=== PATIENT | female | born 1965 | race Caucasian/White ===

== ENCOUNTER 2020-12-02 07:25 | Inpatient (IN) | payer MEDICARE ==
[2020-12-02 08:20] LABS: #Lymphocytes 0.6 thou/uL (1.20-3.40); #Monocytes 0.3 thou/uL (0.11-0.59); #Neutrophils 1.7 thou/uL (1.40-6.50); %Basophils 0.1 % (0.0-1.0); %Eosinophils 0.1 % (0.0-10.0); %Lymphocytes 24.1 % (21.0-51.0); %Monocytes 10.8 % (0.0-10.0); %Neutrophils 64.8 % (42.0-75.0); Mean Corpuscular HGB CONC 34.4 g/dL (32.0-36.0); Mean Corpuscular Hemoglobin 31.8 pg (27.0-31.0); Mean Corpuscular Volume 92.6 fL (78.0-98.0); Mean Platelet Volume 5.9 fL (7.4-10.4); Platelet Count 304 thou/uL (130-400); Red Blood Cell (RBC) Count 3.46 mill/uL (4.20-5.40); White Blood Cell (WBC) Count 2.5 thou/uL (4.8-10.8)
[2020-12-02] MEDS ORDERED: Cefepime 2 GM VIAL ONE (08:29)
[2020-12-02 08:33] LABS: INR-International Normal Ratio 1.2; PTT 28.5 sec (22.9-36.1); Prothrombin Time 15.5 sec (12.0-14.7)
[2020-12-02 08:43] LABS: ALT (SGPT) 32 U/L (8-55); AST (SGOT) 20 U/L (5-34); Albumin 3.9 g/dL (3.5-5.0); Alkaline Phosphatase 124 U/L (40-110); Anion Gap 17 mmol/L (10-20); BUN (Urea Nitrogen) 11 mg/dL (9.8-20.1); Bilirubin, Total 0.5 mg/dL (0.2-1.2); Calc. Creatinine Clearance 0 mL/min (70-130); Carbon Dioxide 19 mmol/L (22-29); Chloride 106 mmol/L (98-107); Globulin 3.1 g/dL (2.4-3.5); Glucose 148 mg/dL (70-105); Potassium 3.8 mmol/L (3.5-5.1); Sodium 138 mmol/L (136-145)
[2020-12-02 09:18] LABS: Bilirubin Negative (Negative); Blood, Urine 1+ (Negative); Clarity Clear (Clear); Glucose, Urine (Dipstick) Normal (Negative); Ketone, Urine 10 mg/dL (Negative); Leukocyte Negative Leu/uL (Negative); Mucous/LPF Rare LPF (<2+); Nitrite Negative (Negative); Protein, Urine (Dipstick) Negative (Neg-Trace); RBC/HPF 0-3 HPF (0-3); Squamous Epithelial 0-3 HPF (0-3); Urobilinogen Normal mg/dL (Less than 2); WBC/HPF 0-3 HPF (0-3)
[2020-12-02 09:19] LABS: Bacteria/HPF Rare-Few HPF (None Seen)
[2020-12-02] MEDS ORDERED: Vancomycin HCl 1.5 GM in Sodium Chloride 0.9% 250 ML 300 ML IVPB SCH (10:00)
[2020-12-02 11:10] LABS: SARS-CoV-2 NAA Rapid Test Not Detected (NotDetected)
[2020-12-02] MEDS ORDERED: Acetaminophen 325 MG TAB PO PRN (11:26)
[2020-12-02] MEDS ORDERED: Ondansetron PF 4 MG/2 ML Vial IVP PRN (11:40)
[2020-12-02] MEDS ORDERED: Metoclopramide HCl 10 MG/2 ML VIAL IVP PRN (11:40)
[2020-12-02 12:16] LABS: Lactic Acid 1.3 mmol/L (0.5-2.2)
[2020-12-02 12:19] LABS: Magnesium 1.7 mg/dL (1.6-2.6); Phosphorus 3.2 mg/dL (2.3-4.7)
[2020-12-02] MEDS ORDERED: Loperamide HCl 2 MG CAP PO PRN (14:36)
[2020-12-02 14:39] VITALS: BMI 27.4
[2020-12-02] MEDS: Cefepime 2 GM in Sodium Chloride 0.9% 100 ML IVPB SCH (15:23)
[2020-12-02] MEDS: Sodium Chloride 0.9% 1,000 ML IV SCH ×3 (15:23→21:05)
[2020-12-02] MEDS: Apixaban 5 MG TAB PO SCH (20:11)
[2020-12-02] MEDS ORDERED: Vancomycin 1 GM in Premix Bag 1 BAG IVPB SCH (22:00)
[2020-12-03] MEDS: Cefepime 2 GM in Sodium Chloride 0.9% 100 ML IVPB SCH ×3 (01:08→17:12)
[2020-12-03] MEDS: Sodium Chloride 0.9% 1,000 ML IV SCH (05:58)
[2020-12-03 06:10] LABS: Anion Gap 7 mmol/L (10-20); BUN (Urea Nitrogen) 8 mg/dL (9.8-20.1); Calc. Creatinine Clearance 102 mL/min (70-130); Carbon Dioxide 25 mmol/L (22-29); Chloride 111 mmol/L (98-107); Glucose 92 mg/dL (70-105); Potassium 3.4 mmol/L (3.5-5.1); Sodium 140 mmol/L (136-145)
[2020-12-03 06:15] LABS: #Lymphocytes 1.3 thou/uL (1.20-3.40); #Monocytes 0.4 thou/uL (0.11-0.59); #Neutrophils 0.9 thou/uL (1.40-6.50); %Basophils 0.3 % (0.0-1.0); %Eosinophils 1.1 % (0.0-10.0); %Monocytes 14.3 % (0.0-10.0); %Neutrophils 35.3 % (42.0-75.0); Hemoglobin 8.1 g/dL (12.0-16.0); Mean Corpuscular HGB CONC 35.3 g/dL (32.0-36.0); Mean Corpuscular Hemoglobin 33.5 pg (27.0-31.0); Mean Corpuscular Volume 94.9 fL (78.0-98.0); Mean Platelet Volume 5.7 fL (7.4-10.4); Platelet Count 256 thou/uL (130-400); RBC Distribution Width 16.3 % (11.5-14.5); Red Blood Cell (RBC) Count 2.43 mill/uL (4.20-5.40); White Blood Cell (WBC) Count 2.7 thou/uL (4.8-10.8)
[2020-12-03 06:16] LABS: Band 15 % (5-11); Eosinophils 3 % (0-10); Lymphocytes 55 % (21-51); MDiff Complete? YES; Monocytes 10 % (0-10); Neutrophil 17 % (42-75); Nucleated RBC 1 % (0); Platelet Morphology Comment Appears Adequate
[2020-12-03] MEDS: Escitalopram Oxalate 10 mg Tablet PO SCH (09:28)
[2020-12-03] MEDS: Saccharomyces boulardii 250 MG CAP PO SCH (09:28)
[2020-12-03] MEDS: Apixaban 5 MG TAB PO SCH ×2 (09:28→20:34)
[2020-12-04] MEDS: Cefepime 2 GM in Sodium Chloride 0.9% 100 ML IVPB SCH ×2 (00:45→08:16)
[2020-12-04 05:57] LABS: #Lymphocytes 1.3 thou/uL (1.20-3.40); #Monocytes 0.3 thou/uL (0.11-0.59); #Neutrophils 1.2 thou/uL (1.40-6.50); %Eosinophils 1.3 % (0.0-10.0); %Lymphocytes 45.3 % (21.0-51.0); %Monocytes 11.5 % (0.0-10.0); %Neutrophils 41.9 % (42.0-75.0); Hemoglobin 8.5 g/dL (12.0-16.0); Mean Corpuscular HGB CONC 34.7 g/dL (32.0-36.0); Mean Corpuscular Hemoglobin 32.2 pg (27.0-31.0); Mean Corpuscular Volume 92.6 fL (78.0-98.0); Mean Platelet Volume 5.6 fL (7.4-10.4); Platelet Count 278 thou/uL (130-400); Red Blood Cell (RBC) Count 2.65 mill/uL (4.20-5.40); White Blood Cell (WBC) Count 2.9 thou/uL (4.8-10.8)
[2020-12-04 06:19] LABS: Anion Gap 8 mmol/L (10-20); BUN (Urea Nitrogen) 8 mg/dL (9.8-20.1); Calc. Creatinine Clearance 99 mL/min (70-130); Calcium 8.5 mg/dL (7.8-10.44); Carbon Dioxide 27 mmol/L (22-29); Chloride 107 mmol/L (98-107); Glucose 96 mg/dL (70-105); Potassium 3.2 mmol/L (3.5-5.1); Sodium 139 mmol/L (136-145)
[2020-12-04] MEDS: Saccharomyces boulardii 250 MG CAP PO SCH (08:16)
[2020-12-04] MEDS: Apixaban 5 MG TAB PO SCH (08:16)
[2020-12-04] MEDS: Escitalopram Oxalate 10 mg Tablet PO SCH (08:16)
[2020-12-04 11:18] VITALS: BP 106/69; TEMP 98.4
== END 2020-12-04 15:31 | disposition home or self-care (01) | DRG 872 ==
LOC: ERS 07:25 → T4-A 09:50
PROVIDERS: ADMIT Family Medicine; ATTEND Family Medicine
DX: A41.9 Sepsis, unspecified organism (principal); I82.622 Acute embolism and thrombosis of deep veins of left upper extremity; N39.0 Urinary tract infection, site not specified; K21.9 Gastro-esophageal reflux disease without esophagitis; F39 Unspecified mood [affective] disorder; K58.9 Irritable bowel syndrome, unspecified; D64.9 Anemia, unspecified; R19.7 Diarrhea, unspecified; E86.0 Dehydration; D70.1 Agranulocytosis secondary to cancer chemotherapy; B96.1 Klebsiella pneumoniae [K. pneumoniae] as the cause of diseases classified elsewhere; T45.1X5A Adverse effect of antineoplastic and immunosuppressive drugs, initial encounter; R65.20 Severe sepsis without septic shock; Z20.822 Contact with and (suspected) exposure to COVID-19; E87.6 Hypokalemia; Z90.710 Acquired absence of both cervix and uterus; Z88.8 Allergy status to other drugs, medicaments and biological substances; Z88.5 Allergy status to narcotic agent; Z88.1 Allergy status to other antibiotic agents; Z79.01 Long term (current) use of anticoagulants; Z85.42 Personal history of malignant neoplasm of other parts of uterus; Z92.21 Personal history of antineoplastic chemotherapy; Z90.89 Acquired absence of other organs; Z98.890 Other specified postprocedural states
CPT/HCPCS: 0240U; 36415; 71045; 80048; 80053; 81003; 81015; 83605; 83630; 83735; 84100; 85025; 85610; 85730; 87040; 87045; 87046; 87077; 87086; 87186; 87324; 87328; 87329; 87427; 87449; 96365; 96367; J0692; J1642; J3370; J3490; J7050